=== PATIENT | male | born 1955 ===

== ENCOUNTER → 2021-06-09 | Outpatient (CLI) | payer OTHER | END | disposition home or self-care (01) | LOC: LAB SHORT 11:27 → LAB 11:27 | DX: D03.61 Melanoma in situ of right upper limb, including shoulder (principal); L57.0 Actinic keratosis; L82.1 Other seborrheic keratosis | CPT/HCPCS: 88305 ==

== ENCOUNTER → 2021-07-28 | Outpatient (CLI) | payer OTHER | END | disposition home or self-care (01) | LOC: LAB SHORT 07:49 | DX: L57.0 Actinic keratosis (principal); L81.4 Other melanin hyperpigmentation | CPT/HCPCS: 88305 ==

== ENCOUNTER → 2022-01-26 | Outpatient (CLI) | payer OTHER | END | disposition home or self-care (01) | LOC: LAB SHORT 14:57 → PLD 14:57 | DX: D03.61 Melanoma in situ of right upper limb, including shoulder (principal); L57.0 Actinic keratosis | CPT/HCPCS: 88305 ==

== ENCOUNTER → 2022-02-15 | Outpatient (CLI) | payer OTHER | END | disposition home or self-care (01) | LOC: LAB SHORT 15:03 → PLD 15:03 | DX: D03.61 Melanoma in situ of right upper limb, including shoulder (principal) | CPT/HCPCS: 88305 ==

== ENCOUNTER 2023-01-27 07:52 | Day surgery (SDC) | payer OTHER ==
[~2023-01-27] VITALS: Ht 185.4 cm; Wt 98.3 kg
--- NOTE | 2023-01-27 08:20 | NUR ---
01/27/23 0820 GEOFF MADDOX T: [id number] P:[id number] CALL LIGHT IN REACH, PRE OP TEACHING PERFORMED. ALL QUESTIONS ASKED AND ANSWERED
[2023-01-27 09:19] VITALS: BP 120/87
--- NOTE | 2023-01-27 09:40 | NUR ---
01/27/23 0940 Jamil Vasquez iv removed intact. SITE WNL.
== END 2023-01-27 09:34 | disposition home or self-care (01) ==
LOC: ORSCSDS 07:52
PROVIDERS: Ophthalmology
PROC: 08DK3ZZ Extraction of Left Lens, Percutaneous Approach (ICD-10-PCS; principal; 2023-01-27 09:00)
DX: H25.13 Age-related nuclear cataract, bilateral (principal)
CPT/HCPCS: J1100; J2001; J2250; J2405; J3010; J3301; J7040; V2632